=== PATIENT | female | born 1970 | race Caucasian/White ===

== ENCOUNTER 2022-08-09 06:54 | Day surgery (SDC) | payer BC ==
[~2022-08-09 06:54] MED LIST: Lidocaine 1%/Sod Bicarbonate in NS 8.4% 1 ML Syringe IDERM PRN; Sodium Chloride 0.9% 10 ML Syringe FLUSH PRN; Sodium Chloride 0.9% 10 ML Syringe FLUSH SCH
[2022-08-09] MEDS: Lactated Ringers 1,000 ML IV SCH (07:20)
[2022-08-09] MEDS ORDERED: Ondansetron 4 MG/2 ML SDV IVPUSH PRN (07:36)
[2022-08-09] MEDS ORDERED: Propofol 200 MG/20 ML SDV ONE ×3 (07:41→08:33)
[2022-08-09] MEDS ORDERED: Lidocaine 1% 4 ML ONE (07:42)
[2022-08-09] MEDS ORDERED: Midazolam 1 MG/ML 2 ML SDV ONE (08:27)
[2022-08-09] MEDS ORDERED: fentaNYL 100 MCG/2 ML SDV ONE (08:43)
[2022-08-09] MEDS ORDERED: Ondansetron 4 MG/2 ML SDV ONE (09:00)
== END 2022-08-09 09:45 | disposition home or self-care (01) ==
LOC: JD.SDS 06:54
PROVIDERS: ATTEND Surgery
DX: Z12.11 Encounter for screening for malignant neoplasm of colon (principal); D12.7 Benign neoplasm of rectosigmoid junction; D12.4 Benign neoplasm of descending colon; F17.210 Nicotine dependence, cigarettes, uncomplicated; E78.00 Pure hypercholesterolemia, unspecified; Z98.890 Other specified postprocedural states; Z79.899 Other long term (current) drug therapy
CPT/HCPCS: J2250; J2405; J2704; J3010; J3490; J7120

== ENCOUNTER 2023-12-13 07:00 | Day surgery (SDC) | payer BC ==
[~2023-12-13 07:00] MED LIST changes: -Lidocaine 1%/Sod Bicarbonate in NS 8.4% 1 ML Syringe IDERM PRN
[2023-12-13] MEDS: Lactated Ringers 1,000 ML IV SCH (07:15)
[2023-12-13] MEDS ORDERED: HYDROmorphone 0.5 MG/0.5 ML Syringe IVPUSH PRN (07:32)
[2023-12-13] MEDS ORDERED: fentaNYL 100 MCG/2 ML SDV IVPUSH PRN (07:32)
[2023-12-13] MEDS: oxyCODONE ER 10 MG TAB.ER PO SCH (07:46)
[2023-12-13] MEDS: Pregabalin 25 MG Cap PO SCH (07:46)
[2023-12-13] MEDS: Acetaminophen 325 MG Tab PO SCH (07:46)
[2023-12-13] MEDS: Scopalamine 1mg/3day Transdermal Patch TOP ONE (07:47)
[2023-12-13] MEDS ORDERED: Midazolam 1 MG/ML 2 ML SDV ONE (08:46)
[2023-12-13] MEDS ORDERED: Propofol 200 MG/20 ML SDV ONE (08:47)
[2023-12-13] MEDS ORDERED: Ketamine 500 mg/10 ML MDV ONE (08:47)
[2023-12-13] MEDS ORDERED: Dexamethasone 4 MG/ML 5 ML MDV ONE (08:48)
[2023-12-13] MEDS ORDERED: Ondansetron 4 MG/2 ML SDV ONE (08:48)
[2023-12-13] MEDS ORDERED: ceFAZolin 2 GM Vial ONE ×2 (08:48→10:01)
[2023-12-13] MEDS ORDERED: Bupivacaine 0.5% 30 ML SDV ONE (08:50)
[2023-12-13] MEDS ORDERED: Lactated Ringers 1,000 ML IV ONE (10:00)
[2023-12-13] MEDS: Vancomycin 1 GM SDV ONE (10:53)
[2023-12-13] MEDS: Tranexamic Acid 1,000 MG/10 ML Vial ONE (10:53)
[2023-12-13] MEDS: Morphine 8 MG, EPINEPHrine 0.3 MG, Cefuroxime 750 MG, Ketorolac 30 MG, Sodium Chloride ... PRN (10:53)
[2023-12-13] MEDS: oxyCODONE 5 MG Tab PO PRN (14:34)
[2023-12-13] MEDS: Ondansetron 4 MG/2 ML SDV IVPUSH PRN (15:50)
== END 2023-12-13 16:00 | disposition home or self-care (01) ==
LOC: JD.SDS 07:00
PROVIDERS: ATTEND Orthopaedic Surgery
DX: M16.11 Unilateral primary osteoarthritis, right hip (principal); I10 Essential (primary) hypertension; E78.5 Hyperlipidemia, unspecified; Z79.899 Other long term (current) drug therapy; Z87.891 Personal history of nicotine dependence; Z79.82 Long term (current) use of aspirin
CPT/HCPCS: 0055T; 27130; 73501; 97110; 97161; A9270; C1713; C1776; J0171; J0665; J0690; J0697; J1100; J1885; J2250; J2270; J2405; J2704; J3370; J3490; J7120; 01214